=== PATIENT | male | born 1995 | race Caucasian/White ===

== ENCOUNTER 2017-12-29 16:42 | Emergency (ER) | payer BC ==
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
[2017-12-29 19:04] VITALS: BP 141/58
== END 2017-12-29 19:02 | disposition home or self-care (01) ==
PROC: 0HQ1XZZ Repair Face Skin, External Approach (ICD-10-PCS; principal; 2017-12-29)
DX: S01.81XA Laceration without foreign body of other part of head, initial encounter (principal); S62.115A Nondisplaced fracture of triquetrum [cuneiform] bone, left wrist, initial encounter for closed fracture; S80.212A Abrasion, left knee, initial encounter; S09.90XA Unspecified injury of head, initial encounter; V19.60XA Unspecified pedal cyclist injured in collision with unspecified motor vehicles in traffic accident, initial encounter; Y93.55 Activity, bike riding; Y92.9 Unspecified place or not applicable; Y99.9 Unspecified external cause status
CPT/HCPCS: L3984